=== PATIENT | male | born 1970 | race Caucasian/White ===

== ENCOUNTER → 2020-04-18 14:02 | Outpatient (BNVA) | payer BC, SELFPAY | PROVIDERS: Visit Provider Nurse Practitioner Family | DX: M25.511 Pain in right shoulder (principal); M25.512 Pain in left shoulder; M54.2 Cervicalgia; G89.29 Other chronic pain | CPT/HCPCS: 72040; 73030 ==

== ENCOUNTER → 2020-05-25 14:11 | Outpatient (BNVA) | payer BC, SELFPAY | PROVIDERS: Visit Provider Specialist | DX: R29.90 Unspecified symptoms and signs involving the nervous system (principal); M54.2 Cervicalgia; M25.511 Pain in right shoulder; M25.512 Pain in left shoulder; G89.29 Other chronic pain | CPT/HCPCS: 72040; 99202 ==

== ENCOUNTER 2020-05-25 16:04 | Outpatient (CLI) | payer BC, SELFPAY ==
[2020-05-25 16:32] LABS: Basophils # 0.1 10^3/uL (0.0-0.1); Basophils % 1.8 %; Eosinophils # 0.2 10^3/uL (0.0-0.8); Eosinophils % 3.8 %; Hematocrit 44.5 % (42.0-52.0); Hemoglobin 14.9 g/dL (11.7-16.6); Lymphocytes # 1.5 10^3/uL (0.8-4.8); Lymphocytes % 37.1 %; Mean Corpuscular HGB Conc 33.5 g/dL (30.0-36.0); Mean Corpuscular Hemoglobin 31.4 pg (28.0-34.0); Mean Corpuscular Volume 93.7 fL (80-94); Mean Platelet Volume 8.8 fL (7.4-10.4); Monocytes # 0.3 10^3/uL (0.2-0.9); Monocytes % 8.4 %; Neutrophils % 48.6 %; Nucleated Red Blood Cells % 0 %; Platelet Count 257 10^3/cmm (130-400); Red Blood Count 4.75 10^6/uL (4.1-5.3); Red Cell Distribution Width 12.7 % (12.1-15.1); White Blood Count 3.9 10^3/uL (4.0-10.0)
[2020-05-25 17:26] LABS: Alanine Aminotransferase 35 U/L (0-41); Albumin Level 4.7 g/dL (3.5-5.2); Alkaline Phosphatase 74 IU/L (40-130); Anion Gap 14.5 (5-19); Aspartate Amino Transferase 27 U/L (0-40); Blood Urea Nitrogen 4 mg/dL (6-20); Calcium 9.2 mg/dL (8.5-10.5); Carbon Dioxide 29 mmol/L (22-29); Chloride 102 mmol/L (98-107); Globulin 2.6 g/dL (1.3-4.6); Glomerular Filtration Rate 102.3 mL/min (90-130); Glucose 75 mg/dL (65-115); Osmolality Calculated 288 mOsm/kg (285-295); Potassium 4.5 mmol/L (3.5-5.1); Sodium 141 mmol/L (136-145); Thyroid Stimulating Hormone 1.27 uIU/mL (0.27-4.20); Total Bilirubin 0.3 mg/dL (0.15-1.2); Total Protein 7.3 g/dL (6.6-8.7)
[2020-05-29 11:49] LABS: Testosterone Total 482.6 ng/dL (193-740)
== END 2020-05-25 16:05 | disposition home or self-care (01) ==
PROVIDERS: Visit Provider Specialist
DX: Z00.00 Encounter for general adult medical examination without abnormal findings (principal)
CPT/HCPCS: 36415; 80053; 84403; 84443; 85025

== ENCOUNTER 2020-06-21 06:00 | Outpatient (RCR) | payer BC, SELFPAY | END 2020-06-21 23:59 | disposition home or self-care (01) | LOC: TPT 06:00 | PROVIDERS: Referring Provider Orthopaedic Surgery; Visit Provider Orthopaedic Surgery | DX: M48.02 Spinal stenosis, cervical region (principal) | CPT/HCPCS: 97110; 97161 ==

== ENCOUNTER 2020-06-23 06:59 | Outpatient (CLI) | payer BC, SELFPAY ==
--- NOTE | 2020-06-23 07:15 | MR_ITS ---
WS: [id number] MRI CERVICAL SPINE NONCONTRAST TECHNIQUE: Sagittal T1, T2 and STIR imaging. Axial T2, gradient, and fiesta imaging. CLINICAL INFORMATION: M48.061 - Spinal stenosis, lumbar region without neurogenic claudication COMPARISON: None. FINDINGS: Straightening of the normal cervical lordosis. Cord signal is normal. No high-grade central canal laxmi nosis. Mild disc bulging C4-C6. C2-C3: Normal. C3-C4: Mild left and no significant right foraminal narrowing. Spinal canal is patent. C4-C5: Mild disc osteophytic ridging with tiny central protrusion. Slight contact of the cervical cor d. Mild left and no significant right foraminal narrowing. Mild facet arthropathy. Mild central canal stenosis. C5-C6: Disc osteophyte complex with endplate ridging. Mild central canal stenosis. Small right forami nal protrusion impinges the exiting right C6 nerve root. Moderate right foraminal narrowing. Moderate left bony foraminal narrowing. Mild facet arthropathy. Mild central canal stenosis. C6-C7: Left pericentral disc osteophyte protrusion. Mild canal stenosis. Slight contact of the left v entral cervical cord. Moderate left and mild right foraminal narrowing. Mild facet arthropathy. Sligh t retrolisthesis C6 on C7. C7-T1: Normal. Visualized brain stem structures: Normal. Prevertebral soft tissues: Normal. MR/MR cervical spin wo con* [id number] IMPRESSION: 1. Straightening of the normal cervical lordosis. Cord signal is normal. No hi gh-grade central canal narrowing. 2. Mild central canal stenosis C4-C5, C5-C6, and C6-C7 described above. 3. Right proximal foraminal disc protrusion C5-C6 impinges the exiting right C 6 nerve root. Recommend correlation for right C6 nerve root symptoms. 4. Shallow left pericentral disc osteophyte complex C6-C7 with slight indentat ion left ventral cervical cord and mild central canal stenosis. Moderate left b dayami foraminal narrowing at this level. 5. Otherwise Mild left C4-5 and moderate left C5-C6 bony foraminal narrowing.
== END 2020-06-23 07:00 | disposition home or self-care (01) ==
LOC: RADSHAW 07:00
PROVIDERS: Visit Provider Orthopaedic Surgery
DX: M48.061 Spinal stenosis, lumbar region without neurogenic claudication (principal); M48.02 Spinal stenosis, cervical region; M50.222 Other cervical disc displacement at C5-C6 level; M25.78 Osteophyte, vertebrae
CPT/HCPCS: 72141

== ENCOUNTER → 2020-08-14 08:43 | Outpatient (BNVA) | payer BC, SELFPAY | PROVIDERS: PCP Nurse Practitioner Family; Referring Provider Orthopaedic Surgery; Visit Provider Anesthesiology Pain Medicine | DX: M54.2 Cervicalgia (principal); M25.511 Pain in right shoulder; M25.512 Pain in left shoulder; Z79.891 Long term (current) use of opiate analgesic | CPT/HCPCS: 99205 ==

== ENCOUNTER → 2020-09-26 08:40 | Outpatient (BNVA) | payer BC, SELFPAY | PROVIDERS: PCP Nurse Practitioner Family; Visit Provider Anesthesiology Pain Medicine | DX: G89.29 Other chronic pain (principal); M54.12 Radiculopathy, cervical region; M48.02 Spinal stenosis, cervical region | CPT/HCPCS: 62321; J1100 ==

== ENCOUNTER → 2020-10-23 12:53 | Outpatient (BNVA) | payer BC, SELFPAY | PROVIDERS: PCP Nurse Practitioner Family; Visit Provider Anesthesiology Pain Medicine | DX: G89.29 Other chronic pain (principal); M25.511 Pain in right shoulder; M25.512 Pain in left shoulder | CPT/HCPCS: 20610; J1030; J3490 ==

== ENCOUNTER → 2021-03-27 00:01 | Outpatient (BNVA) | payer BC, SELFPAY | PROVIDERS: PCP Nurse Practitioner Family; Visit Provider Nurse Practitioner Family | DX: Z20.822 Contact with and (suspected) exposure to COVID-19 (principal) | CPT/HCPCS: 87426 ==

== ENCOUNTER → 2022-05-23 14:29 | Outpatient (BNVA) | payer BC, SELFPAY | PROVIDERS: PCP Nurse Practitioner Family; Visit Provider Physician Assistant | DX: M75.42 Impingement syndrome of left shoulder (principal) | CPT/HCPCS: 73030 ==

== ENCOUNTER → 2025-01-24 11:28 | Outpatient (BNVA) | payer BC, SELFPAY | PROVIDERS: PCP Nurse Practitioner Family; Visit Provider Nurse Practitioner Family | DX: Z13.6 Encounter for screening for cardiovascular disorders (principal); M25.559 Pain in unspecified hip; R07.0 Pain in throat | CPT/HCPCS: 80053; 80061; 84443; 85025; G0103 ==

== ENCOUNTER 2025-01-25 09:26 | Outpatient (CLI) | payer BC, SELFPAY ==
--- NOTE | 2025-01-25 09:31 | XR_ITS ---
WS: [id number] Lumbar spine, AP and lateral views, 01/25/2025 Clinical Data: M54.9 - Dorsalgia, unspecified Comparison: None. Findings: No compression fractures or subluxation is seen. No disc space narrowing is seen. The transverse processes and SI joints are normal. There is an anterior superior spur of L4. XR/XR lumbar spine 2-3V* [id number] Impression: Osteoarthritis L4.
--- NOTE | 2025-01-25 09:31 | XR_ITS ---
WS: [id number] Right hip, AP and frog-leg views, 01/25/2025 Clinical Data: M25.559 - Pain in unspecified hip Comparison: None. Findings: No fractures or dislocations are seen. The right hip shows no erosion, sclerosis, narrowing, cyst formation or fragmentation of the right femoral head. The soft tissues are not remarkable. The adjacent pelvis is normal. XR/XR hip RT 2-3V wo/w pel* [id number] Impression: Negative right hip.
== END 2025-01-25 09:27 | disposition home or self-care (01) ==
LOC: RAD 09:29
PROVIDERS: PCP Nurse Practitioner Family; Visit Provider Nurse Practitioner Family
DX: M25.551 Pain in right hip (principal); M54.9 Dorsalgia, unspecified; M25.78 Osteophyte, vertebrae
CPT/HCPCS: 72100; 73502

== ENCOUNTER 2025-02-28 08:28 | Outpatient (CLI) | payer BC, SELFPAY ==
--- NOTE | 2025-02-28 08:45 | MR_ITS ---
WS: [id number] MRI LUMBAR SPINE NONCONTRAST TECHNIQUE: Sagittal T1, T2 and STIR imaging. Axial T1 and T2 imaging. CLINICAL INFORMATION: M54.9 - Dorsalgia, unspecified COMPARISON: None. FINDINGS: Mild lumbar curve. No acute compression. Disc bulging worse at L5-S1 with an annular tear. L1-L2: Normal. L2-L3: Tiny LEFT foraminal protrusion with mild LEFT foraminal narrowing. Mild facet arthropathy. L3-L4: Mild annular bulging. Mild LEFT foraminal narrowing. L4-L5: Minimal annular bulging. Spinal canal and foramen are patent. L5-S1: LEFT paracentral protrusion impinges the traversing LEFT S1 nerve root in the subarticular recess. Small annular fissure. Mild facet arthropathy. Foramen are patent. Visualized pelvic bony structures: Normal. Paravertebral soft tissues: Normal. MR/MR lumbar spine wo con* [id number] IMPRESSION: 1. LEFT paracentral protrusion L5-S1 impinges the traversing LEFT S1 nerve lior t in the subarticular recess. Associated annular fissure. Recommend correlation LEFT S1 nerve root symptoms. 2. Tiny LEFT foraminal protrusion L2-3 with mild LEFT foraminal narrowing. 3. Annular bulging L3-4 with narrowing of the subarticular recess. Mild LEFT f oraminal narrowing.
--- NOTE | 2025-02-28 09:30 | MR_ITS ---
WS: [id number] EXAMINATION: MR hip RT wo con* [id number] ORDER DATE: 02/28/2025 8:58 AM COMPARISON: None. HISTORY: M25.559 - Pain in unspecified hip CONTRAST: None. TECHNIQUE: Coronal STIR of the Pelvis. Coronal proton density, coronal T1, axial T2 fat sat, axial T1, sagittal T2 fat sat, and sagittal T1 performed of the hip. FINDINGS: Normal bone marrow signal in the bony pelvis and sacrum. Mild degenerative narrowing RIGHT hip with slight hypertrophic changes. No significant edema in the femoral head or acetabulum. No significant joint effusion. Normal RIGHT pubic rami. Mild joint space narrowing of the LEFT hip. No RIGHT inguinal lymphadenopathy. No other acute findings MR/MR hip RT wo con* [id number] IMPRESSION: 1. Mild joint space narrowing RIGHT hip. No joint effusion. 2. No edema in the RIGHT femoral head or acetabulum. 3. Normal bone marrow signal in the bony pelvis and sacrum
== END 2025-02-28 08:29 | disposition home or self-care (01) ==
LOC: RAD 08:28
PROVIDERS: PCP Nurse Practitioner Family; Visit Provider Nurse Practitioner Family
DX: M16.11 Unilateral primary osteoarthritis, right hip (principal); G89.29 Other chronic pain; M25.651 Stiffness of right hip, not elsewhere classified; M53.86 Other specified dorsopathies, lumbar region; M47.816 Spondylosis without myelopathy or radiculopathy, lumbar region; M25.852 Other specified joint disorders, left hip; M43.8X6 Other specified deforming dorsopathies, lumbar region; M47.896 Other spondylosis, lumbar region; M51.369 Other intervertebral disc degeneration, lumbar region without mention of lumbar back pain or lower extremity pain; M51.27 Other intervertebral disc displacement, lumbosacral region
CPT/HCPCS: 72148; 73721